=== PATIENT | male | born 1985 | race Hispanic/Latino ===

== ENCOUNTER 2016-10-25 16:34 | Emergency (ER) | payer OTHER ==
[2016-10-25] MEDS ORDERED: Ibuprofen 800 MG TAB ONE (16:42)
--- NOTE | 2016-10-25 18:22 | RAD ---
RIGHT ANKLE 3 VIEWS: Date: 10/25/16 HISTORY: Twisted right ankle FINDINGS: Soft tissue swelling is seen laterally. There is an obliquely oriented mildly displaced fracture involving the distal fibula at the lateral malleolus. Lateral view shows slight posterior displacement of the distal fragment. No other fracture identified. IMPRESSION: Fracture lateral malleolus. POS: [facility]
== END 2016-10-25 17:14 | disposition home or self-care (01) ==
LOC: NAV ERS 16:34
DX: S82.61XA Displaced fracture of lateral malleolus of right fibula, initial encounter for closed fracture (principal); Z87.891 Personal history of nicotine dependence; X58.XXXA Exposure to other specified factors, initial encounter
CPT/HCPCS: 27786